=== PATIENT | female | born 1980 | race Caucasian/White ===

== ENCOUNTER 2018-01-02 06:22 | Day surgery (SDC) | payer BC ==
[~2018-01-02 06:22] MED LIST: Sodium Chloride 0.9% 10 ML Syringe FLUSH PRN; Sodium Chloride 0.9% 2.5 ML Syringe FLUSH PRN
[2018-01-02] MEDS ORDERED: Scopolamine 1.5 MG Transdermal Patch TRDERM PRN (07:18)
--- NOTE | 2018-01-02 07:21 | PCM.PREANE ---
Preanesthetic Assessment - Anesthesia/Transfusion/Family Hx Anesthesia History: Prior Anesthesia Reaction Other Type of Anesthesia Reaction Comment: Pt reports episode of coughing and dyspnea with last epidural. Family History of Anesthesia Reaction: No Transfusion History: No Prior Transfusion(s) Intubation History: Unknown - Review of Systems General: No Symptoms Pulmonary: No Symptoms Cardiovascular: No Symptoms Gastrointestinal: No Symptoms Neurological: No Symptoms Other: Reports: None - Physical Assessment O2 Sat by Pulse Oximetry: 98 Respiratory Rate: 16 Vital Signs: Last Vital Signs Temp 36.4 C 01/02/18 06:38 Pulse 71 01/02/18 06:38 Resp 16 01/02/18 06:38 BP 122/66 01/02/18 06:38 Pulse Ox 98 01/02/18 06:38 Height: 1.63 m Weight: 64.864 kg ASA Class: 2 Mental Status: Alert & Oriented x3 Airway Class: Mallampati = 1 Dentition: Reports: Normal Dentition ROM/Head Extension: Full Lungs: Clear to Auscultation, Normal Respiratory Effort Cardiovascular: Regular Rate, Regular Rhythm - Lab Values: Laboratory Last Values HCG, Qual NEGATIVE (NEG) 01/02/18 06:45 - Allergies Allergies/Adverse Reactions: Allergies Allergy/AdvReac Type Severity Reaction Status Date / Time aspirin Allergy Stomach Verified 12/27/17 14:16 Upset - Blood Blood Available: No - Anesthesia Plan Pre-Op Medication Ordered: None - Acknowledgements Anesthesia Type Planned: MAC Pt an Appropriate Candidate for the Planned Anesthesia: Yes Alternatives and Risks of Anesthesia Discussed w Pt/Guardian: Yes Pt/Guardian Understands and Agrees with Anesthesia Plan: Yes PreAnesthesia Questionnaire HEENT History: Reports: Other (See Below) Other HEENT History: chronic dry eyes MENTAL HEALTH NURSE History: Reports: , Other (See Below) Other OB/BYN History: history preeclampsia with last Musculoskeletal History: Reports: Fracture Other Musculoskeletal History: hx of fx wrist and foot Neurological History: Reports: Headaches, Chronic, Migraines, Other (See Below) Other Neuro History: hx of motion sickness - Infectious Disease History Infectious Disease History: Reports: Chicken Pox - Past Surgical History HEENT Surgical History: Reports: Oral Surgery Other HEENT Surgeries/Procedures: wisdom teeth removed Female Surgical History: Reports: Other (See Below) (colposcopy) - SUBSTANCE USE Smoking Status *Q: Never Smoker Tobacco Use Within Last Twelve Months: No Second Hand Smoke Exposure: Yes Recreational Drug Use History: No - HOME MEDS Home Medications: Home Meds Diclofenac Sodium [IJD: Diclofenac Sodium] 75 mg PO DAILY PRN 12/27/17 [History] Ethinyl Estradiol/Norgestrel [Cryselle 28-Day] 1 tab PO DAILY 12/27/17 [History] Loteprednol [Lotemax 0.5% Ophth Soln] 1 drop EYEBOTH BID 12/27/17 [History] - CURRENT (IN HOUSE) MEDS Current Meds: Current Medications Scopolamine (Transderm-Scop) 1.5 mg TRDERM Q72H PRN PRN Reason: Nausea Sodium Chloride (Saline Flush) 10 ml FLUSH ASDIRECTED PRN PRN Reason: Keep Vein Open Sodium Chloride (Saline Flush) 2.5 ml FLUSH ASDIRECTED PRN PRN Reason: Keep Vein Open
[2018-01-02] MEDS ORDERED: Ondansetron 4 MG/2 ML SDV ONE (07:25)
[2018-01-02] MEDS ORDERED: Propofol 200 MG/20 ML SDV ONE (07:25)
[2018-01-02] MEDS ORDERED: Dexamethasone 4 MG/ML 5 ML MDV ONE (07:25)
[2018-01-02] MEDS ORDERED: diphenhydrAMINE 50 MG/ML SDV ONE (07:25)
[2018-01-02] MEDS ORDERED: Midazolam 1 MG/ML 2 ML SDV ONE (07:25)
[2018-01-02] MEDS ORDERED: fentaNYL 100 MCG/2 ML SDV ONE (07:25)
[2018-01-02] MEDS ORDERED: Lidocaine 1% with EPINEPHrine 1:100,000 20 ML MDV ONE (07:26)
[2018-01-02] MEDS ORDERED: HYDROmorphone 2 MG/ML SDV ONE (08:08)
[2018-01-02] MEDS ORDERED: Ketorolac 30 MG/ML SDV ONE (08:11)
--- NOTE | 2018-01-02 08:43 | PCM.OPNOTE ---
- General Post-Op/Procedure Note Date of Surgery/Procedure: 01/02/18 Operative Procedure(s): LEEP of cervix Pre Op Diagnosis: LUIS II Post-Op Diagnosis: same Anesthesia Technique: Local, MAC Primary Surgeon: Kerry Cordova Fluid Replacement, Intraop: 1,000 EBL in mLs: 30 Complications: None known Condition: Good Free Text/Narrative:: Dictation [id number]
[2018-01-02 09:30] VITALS: BP 116/64
--- NOTE | 2018-01-02 13:56 | OR ---
SURGEON: Kerry Cordova M.D. DATE OF PROCEDURE: 01/02/2018 PREOPERATIVE DIAGNOSIS: Cervical intraepithelial neoplasia 2 of cervix. POSTOPERATIVE DIAGNOSIS: Cervical intraepithelial neoplasia 2 of cervix. PROCEDURE: Loop electrosurgical excision procedure of cervix. ANESTHESIA: MAC/local. FLUIDS: A 1000 mL crystalloid. ESTIMATED BLOOD LOSS: 30 mL. COMPLICATIONS: None known. FINDINGS: LUIS 2 on biopsy. DISPOSITION: The patient to PACU, stable. SPECIMENS: Pathology. PROCEDURE IN DETAIL: Kasey is a 37-year-old female who has ongoing difficulties with persistent cervical dysplasia, most recent biopsy revealed LUIS 2. At this juncture opted to proceed with further therapeutic intervention as well as diagnostic in the form of LEEP procedure. Risks of the procedure have been discussed and proper consent was obtained. The patient was taken to the operating room, where she underwent MAC anesthetic, was placed in modified dorsal lithotomy position and was prepped and draped in the usual fashion. A time-out was performed. A coated speculum and sidewall retractor were gently placed. Cervix was prepped with Lugol solution. Infiltrated the cervix with a paracervical block using 1% lidocaine with epinephrine. At this juncture using a 20 x 8 mm loop, anterior cervix was excised followed by posterior cervix. Specimens were marked with a suture and sent to pathology. A 5 mm endocervical hat was also obtained. This will be sent to Pathology for further analysis as well. The bed of the wound surface was cauterized with rollerball and Monsel was gently placed. Region was inspected and found to be hemostatic. All instruments were removed from the vagina. Sponge, instrument, and needle count was correct x2. The patient has tolerated the procedure well overall. She will go to PACU in stable condition. Specimens to pathology. JOHN / KEIKO /[id number]
== END 2018-01-02 10:09 | disposition home or self-care (01) ==
LOC: MW.SDS 06:22
PROVIDERS: ATTEND Obstetrics & Gynecology
DX: N87.0 Mild cervical dysplasia (principal); Z88.0 Allergy status to penicillin; Z79.899 Other long term (current) drug therapy
CPT/HCPCS: 36415; 57522; 84703; 85027; A9270; J1100; J1170; J1200; J1885; J2250; J2405; J3010; 00940; 88305; J2704